=== PATIENT | female | born 1935 | race American Indian/Alaskan Native ===

== ENCOUNTER 2021-02-17 21:36 | Emergency (ER) | payer MEDICAID, MEDICARE ==
--- NOTE | 2021-02-17 21:44 | Emergency Department Report ---
HPI - General Time Seen by Provider: 02/17/21 21:37 - HPI HPI: This is an 85-year-old female who presents to the emergency department via EMS from home as a possible stroke. Per EMS, the patient was at her baseline mental status, about 20 minutes prior to their arrival. Her normal baseline mental status is supposedly ambulatory and conversive. EMS says that she has a history of diabetes and an Accu-Chek was about 120. She was found to be altered, responsive only to painful stimuli, with concern for left-sided hemiplegia. She is seen moving her right upper extremity spontaneously but otherwise is nonverbal and a poor historian. The patient was last in our e mergency department in 2014. The chart from that time shows that she has a history of atrial fibrillation and was previously anticoagulated on Coumadin, history of diabetes and a history of high cholesterol. It is unknown whether she is still on anticoagulation. I attempted to call the phone number listed for emergency contact and next of kin, her daughter, without success. ED Past Medical Hx - Past Medical History Hx Diabetes: Yes Additional medical history: AFIB - Surgical History Additional Surgical History: - Social History Smoking Status: Never Smoker Substance Use Type: None - Medications Home Medications: Home Medications Medication Instructions Recorded Confirmed Last Taken Type ALPRAZolam [Xanax] 0.5 mg PO BID PRN 04/21/14 04/21/14 Unknown History Meclizine [Antivert] 25 mg PO Q8H PRN 04/21/14 04/21/14 Unknown History Potassium Chloride [Klor-Con 10] 20 meq PO DAILY 04/21/14 04/21/14 Unknown History Pravastatin [Pravachol] 20 mg PO QHS 04/21/14 04/21/14 Unknown History Warfarin [Coumadin] 2 mg PO DAILY 04/21/14 04/21/14 Unknown History dilTIAZem HCl [Diltiazem 24Hr ER] 300 mg PO DAILY 04/21/14 04/21/14 Unknown History metFORMIN [Glucophage] 500 mg PO BID 04/21/14 04/21/14 Unknown History Cyclobenzaprine [Flexeril 10 MG 10 mg PO Q8H PRN #30 tablet 04/22/14 Unknown Rx TAB] HYDROcodone/APAP 5-325 [[place] 1 each PO Q6HR PRN #20 tablet 04/22/14 Unknown Rx 5/325] levoFLOXacin [Levaquin TAB] 500 mg PO QDAY #7 tablet 06/28/15 Unknown Rx ED Review of Systems ROS: Stated complaint: STROKE Other details as noted in HPI Comment: Unobtainable due to pts medical conditions Physical Exam - Physical Exam Physical Exam: GENERAL: The patient is ill-appearing. HENT: Normocephalic. Atraumatic. Patient has moist mucous membranes. EYES: Pupils equal reactive to light bilaterally. NECK: Supple. Trachea is midline. CHEST/LUNGS: Clear to auscultation. There is no respiratory distress noted. HEART/CARDIOVASCULAR: Irregular with mild to moderate tachycardia. ABDOMEN: Abdomen is soft, nontender. Patient has normal bowel sounds. There is no abdominal distention. SKIN: Skin is warm and dry. NEURO: The patient is awake and eyes are open spontaneously, but otherwise the patient is nonverbal and only responds to painful stimuli. She is seen spont aneously moving her right upper extremity. MUSCULOSKELETAL: There is no obvious deformity. ED Course - Consultations Consultation #1: 02/17/21 21:55 Patient was seen by the telemedicine neurologist while she was at CT. He also agrees that the patient appears to be aphasic with left-sided hemiplegia/hemiparesis. Initially he recommended TPA for this patient. However, after doing some previous research the patient appears to have a history of atrial fibrillation and previously was on Coumadin for anticoagulation. Given this information, the neurologist recommends that we get coags back and if INR less than 1.7 we can proceed with TPA. We will both continue to get in touch with family for a full medication list. However, EMS told him that they went through her medications and there was no evidence of anticoagulation. Consultation #2: 02/17/21 22:19 I once again spoke with the telemedicine neurologist, Dr. Davis. Dr. Davis spoke with the patient's family who confirmed that the patient is anticoagulated on Pradaxa. He looked at the CT angiography of the head and neck and found that the patient has an occlusion of the right common carotid and the terminal right ICA and recommends transfer for interventional neuro. he recommends that the systolic blood pressure stayed between 140-220 and once the diastolic blood pressure less than 105. The patient is currently in atrial fibrillation with RVR with an elevated diastolic pressure. She has been given a dose of labetalol. Blood work has been obtained but has not yet resulted. I am contacting [facility] to inquire about transfer. 02/17/21 22:46 I spoke with the stroke attending at [facility], Dr. Quinonez. [facility] does not have a neuro ICU bed available. Dr Quinonez is also the stroke attending lubrication servicer for [place]. I am contacting [facility] to inquire about bed availability and transfer. 02/17/21 23:30 I spoke with the [place] neuro interpreter deaf, Dr. Soriano, as well as the stroke attending, Dr. Campuzano, and the patient has been accepted for transfer to [facility]. - Intubation Time Out Performed: Yes Sedative: Etomidate Mg Given: 20 Paralytic: Rocuronium Mg Given: 60 Laryngoscope: other (Glidescope) Size: 4 ET Tube Size: 7.5 Tube Secured Depth (cm): 24 Tube Secured Location: lips Tube Placement Confirmation: visualized tube passing t, equal breath sounds bilat, confirmation by capnometr Patient Tolerated Procedure: well Intubation Complications: none ED Medical Decision Making - Lab Data Result diagrams: 02/17/21 22:06 02/17/21 22:06 Lab Results 02/17/21 02/17/21 02/17/21 Range/Units 22:06 22:06 22:06 WBC 12.0 H (4.5-11.0) K/mm3 RBC 4.27 (3.65-5.03) M/mm3 Hgb 12.8 (10.1-14.3) gm/dl Hct 38.1 (30.3-42.9) % MCV 89 (79-97) fl MCH 30 (28-32) pg MCHC 34 (30-34) % RDW 15.6 H (13.2-15.2) % Plt Count 233 (140-440) K/mm3 Lymph % (Auto) 21.4 (13.4-35.0) % [place] % (Auto) 4.9 (0.0-7.3) % Eos % (Auto) 0.5 (0.0-4.3) % Baso % (Auto) 0.5 (0.0-1.8) % Lymph # (Auto) 2.6 (1.2-5.4) K/mm3 [place] # (Auto) 0.6 (0.0-0.8) K/mm3 Eos # (Auto) 0.1 (0.0-0.4) K/mm3 Baso # (Auto) 0.1 (0.0-0.1) K/mm3 Seg Neutrophils % 72.7 H (40.0-70.0) % Seg Neutrophils # 8.7 H (1.8-7.7) K/mm3 PT 15.1 H (12.2-14.9) Sec. INR 1.21 H (0.87-1.13) APTT 27.5 (24.2-36.6) Sec. Thrombin Time 56.2 H (15.1-19.6) Sec. Sodium 138 (137-145) mmol/L Potassium 3.6 (3.6-5.0) mmol/L Chloride 104.1 (98-107) mmol/L Carbon Dioxide 20 L (22-30) mmol/L Anion Gap 18 mmol/L BUN 15 (7-17) mg/dL Creatinine 0.7 (0.6-1.2) mg/dL Estimated GFR > 60 ml/min BUN/Creatinine Ratio 21 % Glucose 213 H (65-100) mg/dL Calcium 8.7 (8.4-10.2) mg/dL Total Bilirubin 0.50 (0.1-1.2) mg/dL AST 13 (5-40) units/L ALT 6 L (7-56) units/L Alkaline Phosphatase 75 (35-129) units/L Ammonia (25-60) umol/L Total Creatine Kinase 29 L (30-135) units/L CK-MB (CK-2) < 1.0 (0.0-4.0) ng/mL CK-MB (CK-2) Rel Index 3.4 (0-4) Troponin T < 0.010 (0.00-0.029) ng/mL Total Protein 6.4 (6.3-8.2) g/dL Albumin 3.3 L (3.9-5) g/dL Albumin/Globulin Ratio 1.1 % TSH (0.270-4.200) mlU/mL Plasma/Serum Alcohol (0-0.07) % Blood Type Antibody Screen 02/17/21 02/17/21 02/17/21 Range/Units 22:06 22:06 22:06 WBC (4.5-11.0) K/mm3 RBC (3.65-5.03) M/mm3 Hgb (10.1-14.3) gm/dl Hct (30.3-42.9) % MCV (79-97) fl MCH (28-32) pg MCHC (30-34) % RDW (13.2-15.2) % Plt Count (140-440) K/mm3 Lymph % (Auto) (13.4-35.0) % [place] % (Auto) (0.0-7.3) % Eos % (Auto) (0.0-4.3) % Baso % (Auto) (0.0-1.8) % Lymph # (Auto) (1.2-5.4) K/mm3 [place] # (Auto) (0.0-0.8) K/mm3 Eos # (Auto) (0.0-0.4) K/mm3 Baso # (Auto) (0.0-0.1) K/mm3 Seg Neutrophils % (40.0-70.0) % Seg Neutrophils # (1.8-7.7) K/mm3 PT (12.2-14.9) Sec. INR (0.87-1.13) APTT (24.2-36.6) Sec. Thrombin Time (15.1-19.6) Sec. Sodium (137-145) mmol/L Potassium (3.6-5.0) mmol/L Chloride (98-107) mmol/L Carbon Dioxide (22-30) mmol/L Anion Gap mmol/L BUN (7-17) mg/dL Creatinine (0.6-1.2) mg/dL Estimated GFR ml/min BUN/Creatinine Ratio % Glucose (65-100) mg/dL Calcium (8.4-10.2) mg/dL Total Bilirubin (0.1-1.2) mg/dL AST (5-40) units/L ALT (7-56) units/L Alkaline Phosphatase (35-129) units/L Ammonia (25-60) umol/L Total Creatine Kinase (30-135) units/L CK-MB (CK-2) (0.0-4.0) ng/mL CK-MB (CK-2) Rel Index (0-4) Troponin T (0.00-0.029) ng/mL Total Protein (6.3-8.2) g/dL Albumin (3.9-5) g/dL Albumin/Globulin Ratio % TSH 4.080 (0.270-4.200) mlU/mL Plasma/Serum Alcohol < 0.01 (0-0.07) % Blood Type B POSITIVE Antibody Screen Negative 02/17/21 Range/Units 22:06 WBC (4.5-11.0) K/mm3 RBC (3.65-5.03) M/mm3 Hgb (10.1-14.3) gm/dl Hct (30.3-42.9) % MCV (79-97) fl MCH (28-32) pg MCHC (30-34) % RDW (13.2-15.2) % Plt Count (140-440) K/mm3 Lymph % (Auto) (13.4-35.0) % [place] % (Auto) (0.0-7.3) % Eos % (Auto) (0.0-4.3) % Baso % (Auto) (0.0-1.8) % Lymph # (Auto) (1.2-5.4) K/mm3 [place] # (Auto) (0.0-0.8) K/mm3 Eos # (Auto) (0.0-0.4) K/mm3 Baso # (Auto) (0.0-0.1) K/mm3 Seg Neutrophils % (40.0-70.0) % Seg Neutrophils # (1.8-7.7) K/mm3 PT (12.2-14.9) Sec. INR (0.87-1.13) APTT (24.2-36.6) Sec. Thrombin Time (15.1-19.6) Sec. Sodium (137-145) mmol/L Potassium (3.6-5.0) mmol/L Chloride (98-107) mmol/L Carbon Dioxide (22-30) mmol/L Anion Gap mmol/L BUN (7-17) mg/dL Creatinine (0.6-1.2) mg/dL Estimated GFR ml/min BUN/Creatinine Ratio % Glucose (65-100) mg/dL Calcium (8.4-10.2) mg/dL Total Bilirubin (0.1-1.2) mg/dL AST (5-40) units/L ALT (7-56) units/L Alkaline Phosphatase (35-129) units/L Ammonia 41.0 (25-60) umol/L Total Creatine Kinase (30-135) units/L CK-MB (CK-2) (0.0-4.0) ng/mL CK-MB (CK-2) Rel Index (0-4) Troponin T (0.00-0.029) ng/mL Total Protein (6.3-8.2) g/dL Albumin (3.9-5) g/dL Albumin/Globulin Ratio % TSH (0.270-4.200) mlU/mL Plasma/Serum Alcohol (0-0.07) % Blood Type Antibody Screen - EKG Data -: EKG Interpreted by Me - EKG Data When compared to previous EKG there are: no significant change Interpretation: unchanged when compared t (04/21/14), other (Atrial fibrillation with a rate of 149 bpm, normal axis, no ST elevation CA) - Radiology Data Radiology results: report reviewed, image reviewed interpreted by me: Chest x-ray shows appropriate intubation with the ET tube about 2 cm above the lucho. There is mild bilateral patchy opacities seen. No pneumothorax. CT head/brain wo con INDICATION: Stroke symptoms. TECHNIQUE: Routine CT head. All CT scans at this location are performed using CT dose reduction for 58.com by means of automated exposure control. COMPARISON: None. FINDINGS: Intracranial: Tomlinson-white matter differentiation is maintained. No evidence of acute territorial infarction. No intracranial hemorrhage. No extra axial omar ection. No hydrocephalus. No herniation. Remote lacunar infarctions in the cerebellum. Sinuses: Paranasal sinuses and mastoid air cells are essentially clear. Orbits: Globes are intact. Calvarium: No acute fracture. IMPRESSION: 1. No acute intracranial abnormality. CT angio neck, CT angio head HISTORY: Stroke COMPARISON: None. TECHNIQUE: CTA of the neck and head is performed after IV contrast. 3-D/MIP reformats were postprocessed. Percentage stenosis is determined by direct quantitative me asurements of diseased internal carotid artery diameter compared with normal distal internal carotid artery reference segments or by criteria similar to NASCET where applicable. All CT scans at this location are performed using CT dose reduction for ALARA by means of automated exposure control. FINDINGS: CTA NECK: Aortic arch: No significant abnormality. Cervical vertebral arteries: No occlusion or hemodynamically significant stenosis. Common Carotid arteries: Occlusion of the right common carotid artery. Internal carotid arteries: The right internal carotid artery is occluded. Left internal carotid artery is patent. CTA HEAD: Intracranial internal carotid arteries: Right internal carotid artery is occluded. Left ICA is patent. Anterior cerebral arteries: No occlusion or significant stenosis. Middle cerebral arteries: The proximal right M1 segment is occluded. There is reconstitution of the distal M1 segment in the distal circulation appears equal to the contralateral side. Intracranial vertebral arteries: No occlusion or significant stenosis. Basilar artery: No occlusion or significant stenosis. Posterior cerebral arteries: No occlusion or significant stenosis. No aneurysm. Additional findings: None. IMPRESSION: 1. There is complete occlusion of the right common carotid artery, right internal carotid artery(neck and intracranially) and proximal right M1 segment of the middle cerebral artery. The distal M1 segment and distal MCA branches are patent. - Medical Decision Making This patient presented to the emergency department as a code stroke as she had a last known well time at about 9 PM. The patient is usually ambulatory and c onversive. She presents with left-sided hemiparesis, right-sided gaze preference and aphasia. The patient went straight to CT scan and had a CT scan of the head without contrast that did not show any hemorrhage or large vessel occlusion. About this time the patient was seen by the telemedicine neurologist to asked for a CT angiography of the head and neck to be completed. As the patient returned from the CT scanner the neurologist called back and says that he noticed right common carotid and right ICA occlusions. Shortly afterwards I also spoke with the radiologist who agrees that the patient has the common carotid and ICA occlusion as well as into the proximal M1 segment of the right MCA. B ecause of this the patient needed transfer to a facility that has interventional neurosurgery for possible thrombectomy. [facility] did not have any beds available. The patient was accepted for transfer to [facility]. The patient had blood work done when she returned from the CT scanner. The labs are mostly unremarkable and nonactionable. However the patient did have hypertension and atrial fibrillation with RVR. She was given 10 mg of IV labetalol with some improvement in both the heart rate and blood pressure. The patient was an NIH stroke scale of 26 and a GCS of nine. However, about the time of my conversations with [place], the patient started having moderate to severe tachypnea and some transient oxygen desaturation. For these reasons, as well as protection of her airway, I intubated the patient as per the procedure section. The patient has just left the emergency department and is being transported by helicopter to [facility]. Critical Care Time: Yes Critical care time in (mins) excluding proc time.: 80 Critical care attestation.: If time is entered above; I have spent that time in minutes in the direct care of this critically ill patient, excluding procedure time. Critical care time was spent on this patient in doing her initial evaluation, multiple reevaluations, ordering and interpretation of labs and imaging, discussion with the [facility] neurologist, discussion with the [place] stroke attending, discussion with the [place] stroke attending and neuro interpreter deaf, IV antihypertensive medication, post intubation sedation, and multiple discussions with the patient's family. This does not include the separately billable procedures done including the intubation procedure. Critical Care Time: 80 minutes ED Disposition Clinical Impression: Acute ischemic cerebrovascular accident (CVA) involving right middle cerebral artery territory, Atrial fibrillation with RVR Acute respiratory failure Qualifiers: Respiratory failure complication: unspecified whether with hypoxia or hypercapnia Qualified Code(s): J96.00 - Acute respiratory failure, unspecified whether with hypoxia or hypercapnia Disposition: DC/TX-70 ANOTHER TYPE HLTHCARE Is pt being admited?: No Condition: Serious Time of Disposition: 23:42
--- NOTE | 2021-02-17 22:05 | Cat Scan Report ---
CT head/brain wo con INDICATION: Stroke symptoms. TECHNIQUE: Routine CT head. All CT scans at this location are performed using CT dose reduction for A KAREN by means of automated exposure control. COMPARISON: None. FINDINGS: Intracranial: Tomlinson-white matter differentiation is maintained. No evidence of acute territorial infar ction. No intracranial hemorrhage. No extra axial collection. No hydrocephalus. No herniation. Remote lacunar infarctions in the cerebellum. Sinuses: Paranasal sinuses and mastoid air cells are essentially clear. Orbits: Globes are intact. Calvarium: No acute fracture. IMPRESSION: 1. No acute intracranial abnormality. Signer Name: Romain Adam MD Signed: 02/17/2021 10:01 PM Workstation Name: [id number]
--- NOTE | 2021-02-17 22:14 | Consultation ---
History of Present Illness History of present illness: [facility] Consult Note # Demographics Consult Type: Acute Stroke Level 1 (0-4.5 hrs) Patient Location: Emergency Room First Name: Sam Last Name: Jean Date of : 1935 Age: 85 Gender: Female Time of Initial Page ( Time): 02/17/2021, 21:39 Time of Return Call ( Time): 02/17/2021, 21:39 # HPI History: 85F with HTN, DM, atrial fibrillation on Pradaxa presents with unresponsiveness. Normally awake and alert, ambulates with help. Noted to be weak on right side with right facial droop. Non-verbal. LKWT 2100, sitting in recliner; when clinical documentation spec returned was found like this. Possible Thrombolytic candidate: on warfarin or NOAC, no intracranial hemorrhage history, no recent major surgery, no known active major internal bleeding, no known blood disorders # Scores Time of exam and NIHSS (): 02/17/2021, 21:40 Level of Consciousness 1a: [2] = Not alert; requires strong or painful stim LOC Questions 1b: [2] = Answers neither correctly LOC Commands 1c: [2] = Performs neither correctly Best Gaze 2: [0] = Normal Visual 3: [0] = No visual loss Facial Palsy 4: [0] = Normal symmetrical movements Motor Arm Left 5a: [4] = No movement Motor Arm Right 5b: [2] = Some effort against gravity Motor Leg Left 6a: [4] = No movement Motor Leg Right 6b: [2] = Some effort against gravity Limb Ataxia 7: [0] = Absent Sensory 8: [2] = Severe to total sensory loss Best Language 9: [3] = Mute Dysarthria 10: [2] = Severe dysarthria Extinction and Inattention 11: [1] = Visual, tactile, auditory, spatial, or personal inattention NIHSS Total: 26 # Data Time Head CT personally read by me ( Time): 02/17/2021, 21:[address]: no bleed, hyperdense L MCA CTA Head: terminal R ICA occlusion with reconstitution in MCA CTA Neck: occlusion, R common carotid artery occlusion # Assessment Impression: Ischemic Stroke (Acute) # Plan Thrombolytic/Intervention: IA Intervention Thrombolytic Exclusion (< 3 hour window): actively on NOAC Target Blood Pressure: SBP < 220, SBP > 140, DBP < 105 Disposition: transfer to [place] capable facility # Logistics Telemedicine: Interactive 2 way audio and visual telecommunication technology was utilized during this visit Electronically signed at 02/17/2021 22:13 (Eastern Time) by David Davis MD Medications and Allergies Allergies Allergy/AdvReac Type Severity Reaction Status Date / Time No Known Allergies Allergy Unverified 04/21/14 19:28 Home Medications Medication Instructions Recorded Confirmed Last Taken Type ALPRAZolam [Xanax] 0.5 mg PO BID PRN 04/21/14 04/21/14 Unknown History Meclizine [Antivert] 25 mg PO Q8H PRN 04/21/14 04/21/14 Unknown History Potassium Chloride [Klor-Con 10] 20 meq PO DAILY 04/21/14 04/21/14 Unknown History Pravastatin [Pravachol] 20 mg PO QHS 04/21/14 04/21/14 Unknown History Warfarin [Coumadin] 2 mg PO DAILY 04/21/14 04/21/14 Unknown History dilTIAZem HCl [Diltiazem 24Hr ER] 300 mg PO DAILY 04/21/14 04/21/14 Unknown History metFORMIN [Glucophage] 500 mg PO BID 04/21/14 04/21/14 Unknown History Cyclobenzaprine [Flexeril 10 MG 10 mg PO Q8H PRN #30 tablet 04/22/14 Unknown Rx TAB] HYDROcodone/APAP 5-325 [[place] 1 each PO Q6HR PRN #20 tablet 04/22/14 Unknown Rx 5/325] levoFLOXacin [Levaquin TAB] 500 mg PO QDAY #7 tablet 06/28/15 Unknown Rx
[2021-02-17 22:20] LABS: Basophils # (Auto) 0.1 K/mm3 (0.0-0.1); Basophils % (Auto) 0.5 % (0.0-1.8); Eosinophils # (Auto) 0.1 K/mm3 (0.0-0.4); Eosinophils % (Auto) 0.5 % (0.0-4.3); Hematocrit 38.1 % (30.3-42.9); Hemoglobin 12.8 gm/dl (10.1-14.3); Lymphocytes # (Auto) 2.6 K/mm3 (1.2-5.4); Lymphocytes % (Auto) 21.4 % (13.4-35.0); Mean Corpuscular HGB Conc 34 % (30-34); Mean Corpuscular Volume 89 fl (79-97); Monocytes # (Auto) 0.6 K/mm3 (0.0-0.8); Monocytes % (Auto) 4.9 % (0.0-7.3); Platelet Count 233 K/mm3 (140-440); Red Blood Count 4.27 M/mm3 (3.65-5.03); Red Cell Distribution Width 15.6 % (13.2-15.2)
[2021-02-17] MEDS ORDERED: SODIUM CHLORIDE 0.9% 1000 ML 1,000 ML IV ONE (22:28)
[2021-02-17 22:32] LABS: INR 1.21 (0.87-1.13)
[2021-02-17 22:33] LABS: Partial Thromboplastin Time 27.5 Sec. (24.2-36.6)
[2021-02-17 22:34] LABS: Thrombin Time 56.2 Sec. (15.1-19.6)
[2021-02-17 22:38] LABS: Alanine Aminotransferase 6 units/L (7-56); Albumin 3.3 g/dL (3.9-5); Blood Urea Nitrogen 15 mg/dL (7-17); Calcium 8.7 mg/dL (8.4-10.2); Hemolysis Index 6
[2021-02-17 22:39] LABS: BUN/Creatinine Ratio 21; Creatine Kinase MB < 1.0 ng/mL (0.0-4.0)
--- NOTE | 2021-02-17 22:42 | Cat Scan Report ---
CT angio neck, CT angio head HISTORY: Stroke COMPARISON: None. TECHNIQUE: CTA of the neck and head is performed after IV contrast. 3-D/MIP reformats were postproces sed. Percentage stenosis is determined by direct quantitative measurements of diseased internal wu tid artery diameter compared with normal distal internal carotid artery reference segments or by crit eria similar to NASCET where applicable. All CT scans at this location are performed using CT dose re duction for ALARA by means of automated exposure control. FINDINGS: CTA NECK: Aortic arch: No significant abnormality. Cervical vertebral arteries: No occlusion or hemodynamically significant stenosis. Common Carotid arteries: Occlusion of the right common carotid artery. Internal carotid arteries: The right internal carotid artery is occluded. Left internal carotid arter y is patent. CTA HEAD: Intracranial internal carotid arteries: Right internal carotid artery is occluded. Left ICA is patent . Anterior cerebral arteries: No occlusion or significant stenosis. Middle cerebral arteries: The proximal right M1 segment is occluded. There is reconstitution of the d istal M1 segment in the distal circulation appears equal to the contralateral side. Intracranial vertebral arteries: No occlusion or significant stenosis. Basilar artery: No occlusion or significant stenosis. Posterior cerebral arteries: No occlusion or significant stenosis. No aneurysm. Additional findings: None. IMPRESSION: 1. There is complete occlusion of the right common carotid artery, right internal carotid artery(neck and intracranially) and proximal right M1 segment of the middle cerebral artery. The distal M1 segme nt and distal MCA branches are patent. I informed Dr. Fine at 9:37 Signer Name: Romain Adam MD Signed: 02/17/2021 10:38 PM Workstation Name: [id number]
[2021-02-17] MEDS ORDERED: ROCURONIUM 50 MG/5 ML INJ IV ONE (23:07)
[2021-02-17] MEDS ORDERED: ETOMIDATE 20 MG/10 ML INJ IV ONE (23:07)
[2021-02-17] MEDS ORDERED: LIP THERAPY VASELINE TP PRN (23:33)
[2021-02-17] MEDS ORDERED: MINERAL OIL/PETROLATUM, WHITE OPHTH OINT 3.5 GM OU PRN (23:33)
[2021-02-17] MEDS ORDERED: niCARdipine DRIP 40 MG/200 ML BAG ONE (23:39)
[2021-02-17 23:43] VITALS: BP 82/63
--- NOTE | 2021-02-18 00:01 | XRay Report ---
CHEST 1 VIEW 2334 INDICATION / CLINICAL INFORMATION: Intubation COMPARISON: None available. FINDINGS: SUPPORT DEVICES: Endotracheal tube is noted with tip approximate 1.5 cm above the lucho. HEART / MEDIASTINUM: No significant abnormality LUNGS / PLEURA: Bilateral increased interstitial markings are seen which are patchily distributed and most prominent in the right upper lobe and both lung bases. Chronicity is unclear but this could rep resent acute patchy pneumonitis, including the possibility of viral pneumonitis. No pneumothorax. ADDITIONAL FINDINGS: No significant additional findings. Signer Name: Star Ramos MD Signed: 02/17/2021 11:56 PM Workstation Name: [id number]
[2021-02-18] MEDS ORDERED: niCARdipine DRIP 40 MG/200 ML BAG IV ONE (00:34)
--- NOTE | 2021-02-21 10:05 | Electrocardiograph Report ---
[facility] Test Date: 2021-02-17 Test Time: 22:13:15 Pat Name: FABIO RAHMAN Department: Room: Gender: F Supervisor Paste Mixing: MARY JANE : 1935 Requested By: ZAHRAA HEATH Order Number: [id number] Reading MD: Lyle Fernandez Measurements Intervals Datto Rate: 149 P: [place]: QRS: 100 QRSD: 80 T: 251 QT: 294 QTc: 468 Interpretive Statements Atrial fibrillation with rapid V-rate Right axis deviation Repolarization abnormality, prob rate related No previous ECG available for comparison Electronically Signed On 02-21-2021 10:05:12 EDT by Lyle Fernandez
== END 2021-02-18 00:05 | disposition other institution (70) ==
LOC: ED 21:36
DX: J96.00 Acute respiratory failure, unspecified whether with hypoxia or hypercapnia (principal); I63.511 Cerebral infarction due to unspecified occlusion or stenosis of right middle cerebral artery; I48.91 Unspecified atrial fibrillation; E11.9 Type 2 diabetes mellitus without complications; Z79.899 Other long term (current) drug therapy; Z98.890 Other specified postprocedural states
CPT/HCPCS: 31500; 36415; 70450; 70496; 70498; 71045; 80053; 82140; 82550; 82553; 82962; 84443; 84484; 85025; 85610; 85670; 85730; 86850; 86900; 86901; 93005; 96361; 96374; 99291; 99292; J2704; J7030; Q9967; 80320; G0480